=== PATIENT | female | born 1945 | race Caucasian/White ===

== ENCOUNTER 2021-08-06 07:03 | Inpatient (IN) ==
--- NOTE | 2021-07-24 08:49 | PAT Medication Instructions ---
Medication Instructions Date of Service July 24, 2021 Home Medications acetaminophen 500 mg tablet 1,000 mg PO BID PRN aspirin 81 mg tablet 81 mg PO QAM atorvastatin 10 mg tablet 10 mg PO HS celecoxib 200 mg capsule (Celebrex) 200 mg PO QAM cholecalciferol (vitamin D3) 25 mcg (1,000 unit) tablet (Vitamin D3) 25 mcg PO QAM coenzyme Q10 100 mg capsule (CoQ-10) 100 mg PO QAM levothyroxine 50 mcg tablet 50 mcg PO QAM lisinopril 20 mg tablet 20 mg PO QAM metoprolol succinate 25 mg tablet,extended release 24 hr 25 mg PO QAM multivitamin 1 tab PO QAM PreserVision AREDS-2 1 tab PO BID Benefiber Clear Sugar Free(dextrin) 1.5 g PO QAM ASK your surgeon for instructions celecoxib 200 mg capsule (Celebrex) 200 mg PO QAM ASK your prescriber and surgeon aspirin 81 mg tablet 81 mg PO QAM STOP taking 2 weeks before surgery (or as soon as possible if surgery is within 2 weeks) coenzyme Q10 100 mg capsule (CoQ-10) 100 mg PO QAM PreserVision AREDS-2 1 tab PO BID DO NOT take the morning of surgery cholecalciferol (vitamin D3) 25 mcg (1,000 unit) tablet (Vitamin D3) 25 mcg PO QAM lisinopril 20 mg tablet 20 mg PO QAM multivitamin 1 tab PO QAM Benefiber Clear Sugar Free(dextrin) 1.5 g PO QAM Take morning of surgery With a small sip of water, OTHERWISE NOTHING TO EAT OR DRINK AFTER MIDNIGHT: acetaminophen 500 mg tablet 1,000 mg PO BID PRN (okay to take up to 4 hours prior to surgery if needed) levothyroxine 50 mcg tablet 50 mcg PO QAM metoprolol succinate 25 mg tablet,extended release 24 hr 25 mg PO QAM Take evening before surgery acetaminophen 500 mg tablet 1,000 mg PO BID PRN (if needed) atorvastatin 10 mg tablet 10 mg PO HS Other Notes If you have any questions please call us at [phone] or [phone] or [phone] or [phone]
--- NOTE | 2021-07-26 09:11 | Anesthesiology Consultation ---
Date of Service July 26, 2021 Assessment & Plan (1) Encounter for pre-operative examination: - COVID screening: Per assessment on 07/26: No known COVID-19 positive contacts or current COVID-19 related symptoms. Travel screen negative. Patient vaccinated. Surgeon arranging preop COVID testing. Awaiting results. - Cardiology note (07/12/21): Low to intermediate cardiac risk Chart Review Chart Review: Acceptable Risk for Surgery and Patient seen in Pre Admission Testing Teaching & Discussion Pre-Anesthesia Teaching/Discussion Notes: Instructed NPO after midnight before surgery,except medications with 15 cc of water. Medication instructions provided according to the PAT guidelines. History Surgery Operation Date: 08/06/21 08:55 Proposed Procedures p Right Total Shoulder Arthroplasty Reverse - Adelfo Reyna MD Height/Weight Height: 5 ft 3.5 in Weight: 100.6 kg Allergies Allergy/AdvReac Type Severity Reaction Status Date / Time prochlorperazine Allergy Severe "weird Verified 07/23/21 15:06 [From Compazine] tongue feeling" thimerosal Allergy Intermediate eye Verified 07/23/21 15:06 redness and irritation nickel Allergy Mild skin Verified 07/23/21 15:06 irritation Medications Home Medications Medication Instructions Recorded Confirmed Last Taken acetaminophen 500 mg tablet 1,000 mg PO BID PRN 07/23/21 07/23/21 Unknown aspirin 81 mg tablet 81 mg PO QA 07/23/21 07/23/21 Unknown atorvastatin 10 mg tablet 10 mg PO HS 07/23/21 07/23/21 Unknown celecoxib 200 mg capsule (Celebrex) 200 mg PO [facility] 07/23/21 07/23/21 Unknown cholecalciferol (vitamin D3) 25 25 mcg PO QAM 07/23/21 07/23/21 Unknown mcg (1,000 unit) tablet (Vitamin D3) coenzyme Q10 100 mg capsule 100 mg PO QAM 07/23/21 07/23/21 Unknown (CoQ-10) levothyroxine 50 mcg tablet 50 mcg PO QAM 07/23/21 07/23/21 Unknown lisinopril 20 mg tablet 20 mg PO QAM 07/23/21 07/23/21 Unknown metoprolol succinate 25 mg 25 mg PO QAM 07/23/21 07/23/21 Unknown tablet,extended release 24 hr multivitamin 1 tab PO QAM 07/23/21 07/23/21 Unknown vit C 250 mg-vit E 90 mg-zinc 40 1 tab PO BID 07/23/21 07/23/21 Unknown mg-copper 1 [id number] capsule (PreserVision AREDS-2) wheat dextrin 3 gram/3.5 gram oral 1.5 g PO QAM 07/23/21 07/23/21 Unknown powder packet (Benefiber Clear Sugar Free(dextrin)) Past Medical History Medical History CAD (coronary artery disease) Non-obstructive 3 vessel CAD (2004 cardiac cath, no stents) Follows with Dr. lGez Glaucoma mild Hyperlipidemia Hypertension Hypothyroidism Osteoarthritis Overactive bladder Skin irritation Occasional skin irritation under breast resolved with PRN antifungals. No current issues. Sleep apnea "moderate" per home study > no machine at this time (did not have formal sleep study yet) Spinal stenosis Exercise / Class Metabolic Activity III < 4 Walking/Shop/Light housework (one FS (no CP, + SOB)) Past Family History Family History Other No family history of adverse response to anesthesia Past Surgical History Surgical History History of bilateral tubal ligation History of cardiac cath ~2004 ([place]) > no stents History of carpal tunnel release R/L History of colonoscopy History of tonsillectomy History of vitrectomy left S/P bladder repair cystocele repair S/P epidural steroid injection Past Anesthesia History No Hx of Anesthesia Complications (except single episode PONV) and No Family Hx of Anesthesia Complications History of PONV No Hx of Motion Sickness and History of PONV (single episode) Social History Smoking Status: Never smoker Do You Dip or Chew Tobacco: No Hx Alcohol Use: No Hx Substance Use: No substance use type: does not use Review of Systems Patient denies chest pain, shortness of breath, fever, chills, cough, wheezing, palpitations. Physical Exam Vital Signs VITALS BP 139/80 P 76 TEMP 98.8 SP02 95%RA RESP 16 PHYSICAL Mildly decreased cervical extension range of motion. Full TMJ range of motion. TMD 3 finger breaths (difficult to palpate) Mallampati Score 2 Dentition: intact, + caps Lungs: clear throughout to auscultation Cardiac: regular rate and rhythm, no murmurs noted Spine: normal Carotid arteries: negative bruit Extremities: no edema Short, thick neck Lab Results Anesthesia Preop Results Results Anesthesia Widget: WBC 6.77 K/uL (4.8-10.8) 07/26/21 Hgb 13.2 g/dL (12.0-16.0) 07/26/21 Hct 39.7 % (37-47) 07/26/21 Plt 338 K/uL (130-400) 07/26/21 Na 138 mmol/L (136-145) 07/26/21 K 4.1 mmol/L (3.5-5.1) 07/26/21 Cl 105 mmol/L (98-107) 07/26/21 CO2 26 mmol/L (21-32) 07/26/21 BUN 20 mg/dl (6-23) 07/26/21 Creat 0.70 mg/dl (0.6-1.2) 07/26/21 Glucose Level 115 mg/dl (70-99(Fasting)) H 07/26/21 PT 10.7 Seconds (9.0-12.0) 07/26/21 PTT 25.0 Seconds (21.0-31.0) 07/26/21 INR 1.0 (0.9-1.1) 07/26/21 HA1c 5.6 % (4.5-5.6) 07/26/21 Urine Color Yellow 07/26/21 Urine Appearance Clear (Clear) 07/26/21 Urine pH 5.0 (4.5-7.5) 07/26/21 Urine Specific [place] 1.020 (1.000-1.030) 07/26/21 Urine Protein Negative (Negative) 07/26/21 Urine Glucose (UA) Negative (Negative) 07/26/21 Urine Ketones Negative (Negative) 07/26/21 Urine Blood Negative (Negative) 07/26/21 Urine Nitrite Negative (Negative) 07/26/21 Urine Bilirubin Negative (Negative) 07/26/21 Urine Urobilinogen Negative (Negative) 07/26/21 Urine Leukocyte Esterase 1+ (Negative) H 07/26/21 Urine WBC (Auto) 10-30 /hpf (0-5) H 07/26/21 Urine RBC (Auto) 0-4 /hpf (0-4) 07/26/21 Urine Hyaline Casts (Auto) 1-5 /lpf (0-5) 07/26/21 Urine Epithelial Cells (Auto) >30 /lpf (0-5) H 07/26/21 Urine Bacteria (Auto) Negative (Negative) 07/26/21 Blood Type A Positive 07/26/21 Antibody Screen NEGATIVE 07/26/21 Testing Electrocardiogram Date: 04/06/21 SR at 71bpm. Low QRS voltage in precordial leads. Normal variant of ECG. Chest X-Ray Date: 07/26/21 Findings: + NAD Echocardiogram Date: 12/29/19 EF 60%. Mild LVH. No regional wall motion abnormality. Mild AI. Mild MR. Trace to mild TR. Mild PI. Normal PAP. Stress Test Date: 12/29/19 Type: nuclear (Lexiscan) Based on EKG criteria, this test is negative. Based on nuclear imaging findings, there is no evidence of myocardial ischemia or infarction. EF 71%.
--- NOTE | 2021-08-03 17:24 | History & Physical Report ---
Date of Service August 03, 2021 Assessment & Plan (1) Primary osteoarthritis, right shoulder: Plan: Treatment options discussed with patient. Surgical intervention recommended as she has failed conservative measures. Risks, benefits and alternatives to surgery including but not limited to infection, DVT, pain, stiffness, need for revision surgery, damage to blood vessels, damage to nerves, PE, , were discussed with the patient and they wish to proceed. Plan for right reverse total shoulder arthroplasty scheduled for Nataly Marie on August [address] Reyna. All questions were answered. Patient will follow up postoperatively. History of Present Illness Chief Complaint: Right shoulder pain Primary Care Provider: Aramis Juarez 76-year-old female with past medical history significant for hypertension, JUAN A, high cholesterol, hypothyroidism, coronary artery disease, who presents with ongoing right shoulder pain. Pain is interfering with patient's daily activities. She has failed conservative measures including anti-inflammatories and injections. She would like to proceed with surgical intervention. Patient denies headaches, sweats, fevers, chills, double vision, blurred vision, cough, sore throat, dysphagia, chest pain, sob, wheezing, n/v/d/c, numbness, tingling, fatigue, urinary symptoms, mood disorders. ROS positive for right shoulder pain and stiffness. Allergies Allergy/AdvReac Type Severity Reaction Status Date / Time prochlorperazine Allergy Severe "weird Verified 07/23/21 15:06 [From Compazine] tongue feeling" thimerosal Allergy Intermediate eye Verified 07/23/21 15:06 redness and irritation nickel Allergy Mild skin Verified 07/23/21 15:06 irritation Home Medications Medication Instructions Recorded Confirmed Type acetaminophen 500 mg tablet 1,000 mg PO BID PRN 07/23/21 07/23/21 History aspirin 81 mg tablet 81 mg PO QAM 07/23/21 07/23/21 History atorvastatin 10 mg tablet 10 mg PO HS 07/23/21 07/23/21 History celecoxib 200 mg capsule (Celebrex) 200 mg PO QAM 07/23/21 07/23/21 History cholecalciferol (vitamin D3) 25 25 mcg PO QAM 07/23/21 07/23/21 History mcg (1,000 unit) tablet (Vitamin D3) coenzyme Q10 100 mg capsule 100 mg PO QAM 07/23/21 07/23/21 History (CoQ-10) levothyroxine 50 mcg tablet 50 mcg PO QAM 07/23/21 07/23/21 History lisinopril 20 mg tablet 20 mg PO QAM 07/23/21 07/23/21 History metoprolol succinate 25 mg 25 mg PO QAM 07/23/21 07/23/21 History tablet,extended release 24 hr multivitamin 1 tab PO QAM 07/23/21 07/23/21 History vit C 250 mg-vit E 90 mg-zinc 40 1 tab PO BID 07/23/21 07/23/21 History mg-copper 1 [id number] capsule (PreserVision AREDS-2) wheat dextrin 3 gram/3.5 gram oral 1.5 g PO QAM 07/23/21 07/23/21 History powder packet (Benefiber Clear Sugar Free(dextrin)) Past Med/Surg History Medical History CAD (coronary artery disease) Non-obstructive 3 vessel CAD (2004 cardiac cath, no stents) Follows with Dr. Glez Glaucoma mild Hyperlipidemia Hypertension Hypothyroidism Osteoarthritis Overactive bladder Skin irritation Occasional skin irritation under breast resolved with PRN antifungals. No current issues. Sleep apnea "moderate" per home study > no machine at this time (did not have formal sleep study yet) Spinal stenosis Surgical History History of bilateral tubal ligation History of cardiac cath ~2004 ([place]) > no stents History of carpal tunnel release R/L History of colonoscopy History of tonsillectomy History of vitrectomy left S/P bladder repair cystocele repair S/P epidural steroid injection Family History Other No family history of adverse response to anesthesia Social History Smoking Status: Never smoker Second Hand Exposure: No; Hx Alcohol Use: No Hx Substance Use: No Preferred Language: Kiswahili Communication Ability: Effective Senior Administrative Assistant Required: No Beliefs That Will Affect Care: None Current Living Situation: Spouse Feels Safe at Home: Yes Assistive Devices: Glasses Review of Systems All systems reviewed & are unremarkable except as noted in HPI & below Physical Exam Constitutional: well developed and well nourished; no acute distress Eyes: PERRL, conjunctivae normal, anicteric sclerae ENMT: external ear and nose normal, oropharynx normal Neck: trachea midline, no thyromegaly Respiratory: normal respiratory effort, lungs clear to auscultation Cardiovascular: RRR, no murmur, no edema Musculoskeletal: Right shoulder: Crepitation noted with range of motion. Diffuse tenderness shoulder max tenderness anterolateral acromion and anterior glenoid, positive impingement signs. Active painful range of motion. Abduction to 90 degrees, forward flexion of 120 degrees, external rotation to 50 degrees. Skin: no rashes, warm and dry Neurologic: patellar DTR's 2+ bilat, sensation intact Psychiatric: A+Ox3, euthymic affect Results & Data ([place]) Diagnostic Findings Right shoulder radiographs demonstrate end-stage osteoarthritis glenohumeral joint with [id number] glenohumeral joint with periarticular osteophyte formation subchondral cystic changes. There is severe AC joint arthritis. MRI demonstrates marked subacromial bursitis with calcific tendinitis and rotator cuff with high-grade partial tearing of the rotator cuff.
[~2021-08-06 07:03] MED LIST: ACETAMINOPHEN 500 MG TAB PO SCH; CeleBREX 200 MG CAP PO SCH; FAMOTIDINE 20 MG TAB PO SCH; GABAPENTIN 300 MG CAP PO SCH; LR 15ML/HR IV SCH; METOCLOPRAMIDE HCL 10 MG TABLET PO SCH; TRANEXAMIC ACID 1,000 MG **IV Intra-op IV SCH; TRANEXAMIC ACID 1,000 MG **IV Pre-op IV SCH; ceFAZolin 2000MG 2,000 MG/15 ML SYR IV SCH; dexAMETHasone 4 MG TAB PO SCH
[2021-08-06] MEDS ORDERED: BUPIVACAINE 0.5 % 5 MG/1 ML PF 10ML VIAL ONE (07:04)
[2021-08-06] MEDS ORDERED: MIDAZOLAM HCL 1 MG/ML 2ML VIAL ONE (07:14)
[2021-08-06] MEDS ORDERED: fentaNYL citrate 100 MCG/2 ML VIAL ONE (07:19)
--- NOTE | 2021-08-06 07:48 | History & Physical Bridge Note ---
Date of Service August 06, 2021 History & Physical Bridge Note I have examined the patient, reviewed the History & Physical and in the interval since the performance of the History & Physical I have noted the following changes of clinical significance: no changes noted
[2021-08-06] MEDS ORDERED: ePHEDrine sulfate 50 MG/ML AMP IV PRN (08:33)
[2021-08-06] MEDS ORDERED: HYDROmorphone INJ 2 MG/ML SYR/VIAL IV PRN (08:33)
[2021-08-06] MEDS ORDERED: ONDANSETRON INJ 2 MG/ML 2 ML VIAL IV PRN ×2 (08:33→15:36)
[2021-08-06] MEDS ORDERED: ATROPINE SULFATE 0.1 MG/ML 10ML SYR IV PRN (08:33)
[2021-08-06] MEDS ORDERED: fentaNYL citrate 100 MCG/2 ML VIAL IV PRN (08:33)
[2021-08-06] MEDS ORDERED: PROPOFOL IV EMULSION 10 MG/ML 20 ML VIAL IV ONE (10:15)
[2021-08-06] MEDS ORDERED: ONDANSETRON INJ 2 MG/ML 2 ML VIAL ONE (10:15)
[2021-08-06] MEDS ORDERED: ePHEDrine sulfate 50 MG/ML SYR ONE (10:15)
[2021-08-06] MEDS ORDERED: NEOSTIGMINE METHYLSULFATE 1 MG/ML 10ML VIAL ONE (10:15)
[2021-08-06] MEDS ORDERED: DEXAMETHASONE SOD INJ 4 MG/ML VIAL ONE (10:15)
[2021-08-06] MEDS ORDERED: ROCURONIUM BROMIDE 10 MG/ML 5 ML VIAL IV ONE (10:15)
[2021-08-06] MEDS ORDERED: LIDOCAINE 2% 2 ML VIAL/AMP(20MG/ML) INFIL ONE (10:15)
[2021-08-06] MEDS ORDERED: GLYCOPYRROLATE 0.2 MG/ML VIAL ONE (10:15)
--- NOTE | 2021-08-06 12:34 | Post Operative Brief Note ---
Immediate Post Op Note v1 Date of Surgery August 06, 2021 Pre & Post Diagnosis Operation Date: 08/06/21 08:55 Pre-Op Diagnosis: Primary glenohumeral osteoarthritis of Right Shoulder, Biceps Tendinopathy, rotator cuff tendinopathy, obesity BMI 38.6 Post-Op Diagnosis: Primary glenohumeral osteoarthritis of Right Shoulder, Biceps Tendinopathy, rotator cuff tendinopathy, obesity BMI 38.6 I identified the patient and participated in the time-out.: Yes Procedure Operation Date: 08/06/21 08:55 Actual Procedures p Right reversed total Shoulder Arthroplasty, Biceps Tenodesis(Right) - Adelfo Reyna MD Surgeon Adelfo Reyna MD Clinical Quality Assurance Specialist Vadim WOODALL Estimated Blood Loss 75 Findings Consistent with Post-Op Diagnosis Specimens Humeral head Drains Hemovac Drain Anesthesia Type General Regional Complications none Disposition Disposition: Recovery Room Overlapping Procedure I was present for: the critical portions of procedure. Back up surgeon: was not required during procedure.
--- NOTE | 2021-08-06 13:25 | XRay Report ---
XR shoulder RT min 2V routine CLINICAL HISTORY: Post shoulder surgery TECHNIQUE: 3 views of the right shoulder were obtained. Comparison: None available at the time of this dictation. FINDINGS: Patient is status post shoulder arthroplasty with expected postsurgical changes including soft tissue swelling, subcutaneous emphysema, and surgical staple placement. No periarticular lucency or hardwar e fracture is seen. IMPRESSION: Expected postoperative appearance status post placement of shoulder arthroplasty. ACT 112: Negative or not required by law. Electronically signed by: Elvis Thompson M.D. 08/06/2021 1:24 PM
--- NOTE | 2021-08-06 14:59 | Anesthesiology Progress Note ---
Date of Service August 06, 2021 Anesthesia Post Procedure Vital Signs Vital Signs: Temp Pulse Pulse Resp BP Pulse Ox 08/06/21 14:45 36.2 C L 70 18 138/65 93 08/06/21 14:30 68 18 148/67 H 92 08/06/21 14:15 68 18 145/70 H 92 08/06/21 14:00 71 18 155/66 H 92 08/06/21 13:45 71 18 148/93 H 92 08/06/21 13:35 36.2 C L 70 18 143/68 H 92 08/06/21 13:25 67 20 149/61 H 96 08/06/21 13:15 68 20 139/68 97 08/06/21 13:05 73 20 156/70 H 97 08/06/21 12:57 36.0 C L 76 22 153/67 H 99 08/06/21 07:36 36.7 C 77 20 185/68 H 99 Transfer of Care Handoff Completed per policy Notes Mental Status: alert / awake / arousable and participated in evaluation Patient Amnestic to Procedure: Yes Nausea / Vomiting: adequately controlled Pain: adequately controlled Airway Patency, RR, SpO2: stable & adequate BP & HR: stable & adequate Hydration State: stable & adequate Anesthetic Complications: no major complications apparent and Pt Satisfied with anesthetic care
[2021-08-06] MEDS ORDERED: bisacodyL 10 MG SUPP PR PRN (15:36)
[2021-08-06] MEDS ORDERED: METOCLOPRAMIDE HCL INJ 5 MG/ML 2 ML VIAL IV PRN (15:36)
[2021-08-06] MEDS ORDERED: NALOXONE HCL 0.4 MG/1 ML VIAL/CARP IV PRN (15:36)
[2021-08-06] MEDS ORDERED: oxyCODONE HCL IR 5 MG TAB (IMMEDIATE RELEASE) PO PRN (15:36)
[2021-08-06] MEDS ORDERED: HYDROmorphone INJ 0.5 MG/0.5 ML SYR IV PRN (15:36)
[2021-08-06] MEDS ORDERED: MAGNESIUM HYDROXIDE SUSP 30 ML UDC PO PRN (15:36)
[2021-08-06] MEDS: ACETAMINOPHEN 500 MG TAB PO SCH ×2 (16:13→21:42)
[2021-08-06] MEDS: SODIUM CHLORIDE 0.9% 1000ML 1,000 ML IV SCH (16:13)
--- NOTE | 2021-08-06 16:45 | Hospitalist Consultation ---
Date of Consultation August 06, 2021 Assessment & Plan (1) Primary osteoarthritis, right shoulder: S/p TKA POD #0 - ABX per primary service - IVF per primary service - Chemoprophylaxis per Primary team - continue with SCDs and ASA - Pain control per primary service- tiered pain control with rescue Narcan available - Diet per primary service - Bowel regmine ordered - PT/OT per primary service (2) CAD (coronary artery disease): Reportedly 3V CAD with cardiology review- unspecified - without symptoms - Continue BB - Continue 10mg Atorvastatin - Continue ASA 81 mg daily (3) Hyperlipidemia: As above continue with statin (4) Hypertension: As above - follow goal < 180 overnight (5) Hypothyroidism: Continue with synthroid (6) Sleep apnea: She reports that she was noted with moderate disease and awaiting formal sleep study with titration of therapy - CPAP- AUTOPAP ordered titrate to patient tolerance and adequate VT, RR, SPo2 Supervising Physician Co-Signing Physician Notes I personally saw and examined the patient. I verified all mart points and agree with PAGE Hughes with the following exceptions and/or additions: 76 year old female pod #0 Right reverse total shoulder replacement with biceps tenodesis. Chronic medical conditions reviewed with the patient and stable. o/e A&Ox3, HS1+2, no murmurs, Chest CTAB, Abdo SNT Thank you for the consult will review tomorrow with post op labs. History of Present Illness Reason for Consultation: Medical Management post operatively Requesting Physician: Dr. Reyna Attending Physician: Adelfo Reyna MD History of Present Illness 76 YOF medical history of: Hypothyroidism, HLD, HTN, JUAN A-moderate(awaiting sleep study on device), Aortic Insufficiency, CAD, Obesity, carpral tunnel. Patient is POD#0 fromo right shoulder TKA done under general anesthesia with intubation. EBL reported 75ml. Patient was evaluated in her room on the [place]. Patient is briskly awake on room air. She is without nausea/vomiting and her pain is controlled. She has some tingling to her thumb and index finger on the right hand at the tips. Voices no other concerns. She remains with Hemovac drain in place with minimal serous sang output. She denies any chest pain or difficulty breathing. Overall patient appears comfortable and recovering as planned. Recommendations: - CPAP - AutoPap at night while receiving sedating medications- patient reports she likely won't wear it or sleep much - Follow BMP with renal function in am in regards to ACEi - Rescue Narcan is available - ASA- slated to start in morning- agree as long as primary service comfortable with hemostasis and drain Allergies Allergy/AdvReac Type Severity Reaction Status Date / Time prochlorperazine Allergy Severe "weird Verified 08/06/21 07:23 [From Compazine] tongue feeling" thimerosal Allergy Intermediate eye Verified 08/06/21 07:23 redness and irritation nickel Allergy Mild skin Verified 08/06/21 07:23 irritation Home Medications Medication Instructions Recorded Confirmed Type acetaminophen 500 mg tablet 1,000 mg PO BID PRN 07/23/21 08/06/21 History aspirin 81 mg tablet 81 mg PO QAM 07/23/21 08/06/21 History atorvastatin 10 mg tablet 10 mg PO HS 07/23/21 08/06/21 History celecoxib 200 mg capsule (Celebrex) 200 mg PO QA 07/23/21 08/06/21 History cholecalciferol (vitamin D3) 25 25 mcg PO QAM 07/23/21 08/06/21 History mcg (1,000 unit) tablet (Vitamin D3) coenzyme Q10 100 mg capsule 100 mg PO QA 07/23/21 08/06/21 History (CoQ-10) levothyroxine 50 mcg tablet 50 mcg PO QAM 07/23/21 08/06/21 History lisinopril 20 mg tablet 20 mg PO QAM 07/23/21 08/06/21 History metoprolol succinate 25 mg 25 mg PO QA 07/23/21 08/06/21 History tablet,extended release 24 hr multivitamin 1 tab PO QAM 07/23/21 08/06/21 History vit C 250 mg-vit E 90 mg-zinc 40 1 tab PO BID 07/23/21 08/06/21 History mg-copper 1 gv-gdobfr-dmpuoc capsule (PreserVision AREDS-2) wheat dextrin 3 gram/3.5 gram oral 1.5 g PO QAM 07/23/21 08/06/21 History powder packet (Benefiber Clear Sugar Free(dextrin)) Patient History Medical History (Updated 08/06/21 @ 17:17 by PAGE العراقي) CAD (coronary artery disease) Non-obstructive 3 vessel CAD (2004 cardiac cath, no stents) Follows with Dr. Glez Glaucoma mild Hyperlipidemia Hypertension Hypothyroidism Osteoarthritis Overactive bladder Skin irritation Occasional skin irritation under breast resolved with PRN antifungals. No current issues. Sleep apnea "moderate" per home study > no machine at this time (did not have formal sleep study yet) Spinal stenosis Surgical History History of bilateral tubal ligation History of cardiac cath ~2004 ([place]) > no stents History of carpal tunnel release R/L History of colonoscopy History of tonsillectomy History of vitrectomy left S/P bladder repair cystocele repair S/P epidural steroid injection Family History Other No family history of adverse response to anesthesia Social History Smoking Status: Never smoker Second Hand Exposure: No; Do You Dip or Chew Tobacco: No; Tobacco Cessation Education Requested by Patient: No Hx Alcohol Use: No Hx Substance Use: No Preferred Language: Arabic Communication Ability: Effective Topstitcher Lockstitch Required: No Beliefs That Will Affect Care: None Current Living Situation: Spouse Other Information That Helps Us Care for You: No Feels Safe at Home: Yes Safety Concerns: Feels Safe At This Time Assistive Devices: Glasses Review of Systems Review of Systems: REVIEW OF SYSTEMS: Constitutional: No fever, sweats or chills Eyes: No diplopia, no worsening or blurred vision ENT: normal hearing, no trouble swallowing Respiratory: No cough, sputum, dyspnea at rest or on exertion Cardiovascular: No chest pain, tightness or palpitations Abdomen: No pain, nausea, vomiting, diarrhea or constipation Musculoskeletal: No joint pain, calf pain, swelling Neurologic: No weakness, or balance problems Psychiatric: No anxiety or depression Skin: No rash or itch Physical Exam Physical Exam: PHYSICAL EXAM: General: awake, alert, no apparent distress Head: Normocephalic, atraumatic ENT: PERRLA, EOMI, no pharyngeal exudate, mucous membranes moist Neuro: AAO x 3, speech clear and appropriate, strength intact bilaterally 5/5, sensation intact and equal all extremities and dermatomes Chest: equal rise and fall of the chest, no accessory muscle use, no heaves or thrills, decreased in bases, on room air, Cardiac: Regular rate and rhythm, telemetry reviewed, skin warm dry, cap refill <3 seconds, peripheral pulses +2 no JVD, grade II systolic murmur,- tingling to tip of right thumb and right index finger tip- strong radial pulse GI: NABS x 4 quadrants, soft, nontender to palpation, no rebound, guarding or tenderness : Spontaneously voiding, no pain, no CVA tenderness, Extremities: Normal inspection, no peripheral edema or erythema, calfs nontender to palpation Psych: Normal mood and affect Skin: right shoulder dressing intact with Hemovac drain in place draining small amount of serous sang drainage Results & Data Results & Data ([facility]) Vital Signs (Past 12 Hours) Vital Signs Temp Pulse Pulse Resp BP Pulse Ox 08/06/21 16:15 36.9 C 71 16 148/76 H 93 08/06/21 15:47 36.6 C 72 20 124/63 94 08/06/21 15:00 70 18 143/65 H 93 08/06/21 14:45 36.2 C L 70 18 138/65 93 08/06/21 14:30 68 18 148/67 H 92 08/06/21 14:15 68 18 145/70 H 92 08/06/21 14:00 71 18 155/66 H 92 08/06/21 13:45 71 18 148/93 H 92 08/06/21 13:35 36.2 C L 70 18 143/68 H 92 08/06/21 13:25 67 20 149/61 H 96 08/06/21 13:15 68 20 139/68 97 08/06/21 13:05 73 20 156/70 H 97 08/06/21 12:57 36.0 C L 76 22 153/67 H 99 08/06/21 07:36 36.7 C 77 20 185/68 H 99 Laboratory Results none for review - BMP and CBC in am Medications Administered Home Medications acetaminophen 500 mg tablet 1,000 mg PO BID PRN 07/23/21 [History Confirmed 08/06/21] aspirin 81 mg tablet 81 mg PO QAM 07/23/21 [History Confirmed 08/06/21] atorvastatin 10 mg tablet 10 mg PO HS 07/23/21 [History Confirmed 08/06/21] celecoxib 200 mg capsule (Celebrex) 200 mg PO QAM 07/23/21 [History Confirmed 08/06/21] cholecalciferol (vitamin D3) 25 mcg (1,000 unit) tablet (Vitamin D3) 25 mcg PO QAM 07/23/21 [History Confirmed 08/06/21] coenzyme Q10 100 mg capsule (CoQ-10) 100 mg PO QA 07/23/21 [History Confirmed 08/06/21] levothyroxine 50 mcg tablet 50 mcg PO QA 07/23/21 [History Confirmed 08/06/21] lisinopril 20 mg tablet 20 mg PO QA 07/23/21 [History Confirmed 08/06/21] metoprolol succinate 25 mg tablet,extended release 24 hr 25 mg PO QA 07/23/21 [History Confirmed 08/06/21] multivitamin 1 tab PO QAM 07/23/21 [History Confirmed 08/06/21] vit C 250 mg-vit E 90 mg-zinc 40 mg-copper 1 du-wlrvue-hudvwe capsule (PreserVision AREDS-2) 1 tab PO BID 07/23/21 [History Confirmed 08/06/21] wheat dextrin 3 gram/3.5 gram oral powder packet (Benefiber Clear Sugar Free(dextrin)) 1.5 g PO [facility] 07/23/21 [History Confirmed 08/06/21] Active Medications Acetaminophen (Acetaminophen 500 Mg Tab) 1,000 mg PO Q8 [facility] Stop: 09/05/21 15:59 Last Admin: 08/06/21 16:13 Dose: 1,000 mg Documented by: Aspirin (Aspirin 81 Mg Ectab) 81 mg PO [facility] Stop: 09/06/21 08:59 Atorvastatin Calcium (Atorvastatin 10 Mg Tab) 10 mg PO [facility] Stop: 09/05/21 20:59 Bisacodyl (Bisacodyl 10 Mg Supp) 10 mg MT DAILY PRN PRN Reason: Constipation Stop: 09/05/21 15:35 Docusate Sodium (Docusate Sodium 100 Mg Cap) 100 mg PO BID [facility] Stop: 09/05/21 20:59 Hydromorphone HCl (Hydromorphone Inj 0.5 Mg/0.5 Ml Syr) 0.5 mg IV Q4H PRN PRN Reason: Pain or Pre PT Stop: 08/20/21 15:35 Sodium Chloride (Nss 1000ml) 1,000 mls @ 100 mls/hr IV .Q10H [facility] Stop: 08/07/21 06:00 Last Admin: 08/06/21 16:13 Dose: 100 mls/hr Documented by: Cefazolin Sodium (Ancef 2000mg) 2,000 mg in 15 mls @ 3.75 mls/min IV Q8H [facility]; Protocol Stop: 08/07/21 03:03 Levothyroxine Sodium (Levothyroxine Sodium 50 Mcg Tablet) 50 mcg PO [facility] Stop: 09/06/21 08:59 Lisinopril (Lisinopril 20 Mg Tab) 20 mg PO [facility] Stop: 09/06/21 08:59 Magnesium Hydroxide (Magnesium Hydroxide Susp 30 Ml Udc) 30 ml PO Q6H PRN PRN Reason: Constipation Stop: 09/05/21 15:35 Metoclopramide HCl (Metoclopramide Hcl Inj 5 Mg/Ml 2 Ml Vial) 10 mg IV Q6H PRN PRN Reason: Nausea And Vomiting Stop: 09/05/21 15:35 Metoprolol Succinate (Metoprolol Succ 25mg Ext Rel Tab) 25 mg PO [facility] Stop: 09/06/21 08:59 Multivitamins (Multivitamin Tab) 1 tab PO [facility] Stop: 09/06/21 08:59 Multivitamins (Multivitamin Tab) 1 tab PO [facility] Stop: 09/06/21 08:59 Naloxone HCl (Naloxone Hcl 0.4 Mg/1 Ml Vial/Carp) 0.1 mg IV Q5M PRN PRN Reason: Oversedation/Resp Depression Stop: 09/05/21 15:35 Ondansetron HCl (Ondansetron Inj 2 Mg/Ml 2 Ml Vial) 4 mg IV Q6H PRN PRN Reason: Nausea And Vomiting Stop: 09/05/21 15:35 Oxycodone HCl (Oxycodone Hcl Ir 5 Mg Tab (Immediate Release)) 5 - 10 mg PO Q4H PRN PRN Reason: Pain or Pre PT Stop: 08/20/21 15:35 Sennosides (Senna 8.6 Mg Tab) 17.2 mg PO [facility] Stop: 09/05/21 20:59 Vitamin D (Cholecalciferol 1,000 Units 25 Mcg Tab) 1,000 units PO QAM [facility] Stop: 09/06/21 08:59 ECG Additional Comments: none for review PG Care Time/CCT Total # of Minutes Spent Total Time Spent with Patient: Total time spent is greater than 50% in coordination of care (as documented) at patient's floor/unit and/or counseling patient: Coding Level of Care Code 44234 Office/OBS Consult Lvl 3 Diagnoses Primary osteoarthritis, right shoulder M19.011 CAD (coronary artery disease) I25.10 Hyperlipidemia E78.5 Hypertension I10 Hypothyroidism E03.9 Sleep apnea G47.30
--- NOTE | 2021-08-06 16:50 | Operative Report ---
Post Operative Report Pre & Post Diagnosis Operation Date: 08/06/21 08:55 Pre-Op Diagnosis: Right shoulder glenohumeral osteoarthritis, rotator cuff tendinopathy, biceps tendinitis, obesity BMI 38.6 Post-Op Diagnosis: Right shoulder glenohumeral osteoarthritis, rotator cuff tendinopathy, biceps tendinitis and tendinopathy, obesity BMI 38.6 I identified the patient and participated in the time-out.: Yes Procedure Operation Date: 08/06/21 08:55 Actual Procedures p Right reverse total shoulder replacement with biceps tenodesis. Adelfo Reyna MD Surgeon Adelfo Reyna MD Quality Control Engineer Vadim WOODALL Estimated Blood Loss 75 Findings Consistent with Post-Op Diagnosis Specimens Humeral head Drains 2 Hemovac Anesthesia Type General Regional Complications none Disposition Disposition: Recovery Room Indications 76-year-old female with severe glenohumeral osteoarthritis right shoulder failed conservative management. Radiographically [id number] with type a central wear. MRI however demonstrates marked tendinopathy of the rotator cuff with partial tearing of the rotator cuff and biceps tenosynovitis and chronic marked subacromial bursitis. Description of Procedure The patient was taken to the operating room and anesthetized under regional block and general anesthetic. The patient was positioned on the operating table in a 30 beach chair position with a towel roll under the medial border of the right scapula. The arm was draped free to be able to manipulate the shoulder as needed. The right upper extremity was prepped and draped in usual sterile fashion. Exam demonstrated an obese arm and shoulder area. 120 passive forward flexion 35 degrees external rotation 40 degrees internal rotation and 70 degrees abduction. An anterior deltopectoral approach was performed. A longitudinal incision was made in the deltopectoral interval. The skin was incised sharply. Deep layer of fat was divided down to the fascia. Subcutaneous flaps were elevated off the fascia. The cephalic vein was dissected out and retracted lateral with the deltoid. The clavipectoral fascia was divided at the lateral margin of the conjoined tendon and extended up to the CA ligament. The following findings were noted: There was chronic bursitis over the subscapularis and subacromial space. There was rotator cuff tendinopathy with intact rotator cuff. There was chronic biceps tenosynovitis. The extra-articular external biceps tendon was intact. The upper centimeter of the pectoralis was released for inferior exposure. A self-retaining retractor was placed. Thebiceps tendon was tenodesed to the pectoralis tendon with #2 FiberWire. The proximal biceps was resected. The subscapular muscle fibers were split longitudinally at the level of the circumflex vessels. The circumflex vessels were identified and tied off with silk ties and divided laterally. A Kitner elevator was used to free up the inferior fibers of the subscapularis off of the capsule. The axillary nerve was identified with a tug test and protected with a blunt Brionna retractor between the nerve and the capsule. The subscapularis tendon was then taken down off of the lesser tuberosity subperiosteally, a Vicryl traction suture was placed and a subperiosteal dissection was performed along the neck of the humerus as the arm was gradually externally rotated exposing the humeral head. The humeral head findings demonstrated eburnated bone exposed bone on the humeral head with irregular inferior osteophytes that extended posteriorly and anteriorly. Retractors were readjusted and the osteophytes were all resected using an artist chisel and a rongeur A Maciel elevator was used to assist in releasing the capsule of the neck of the humerus. The capsule was divided with Ahumada scissors down to the glenoid released off the anterior glenoid and the rotator interval was released to meet the capsular release and a 360 release of the subsca pularis was accomplished. A Fukuda retractor was placed into the joint retracting the humeral head posterior. Glenoid findings demonstrated exposed bone devoid of articular cartilage. There were subchondral cystic changes. The labrum and biceps tendon was resected. an anterior-inferior and posterior inferior capsular release were performed with electrocautery and a Maciel elevator on bone with the axillary nerve protected inferiorly by the retractor. Attention was then taken to the humeral preparation. The cutting guide was placed into the humeral head. It was positioned at 20 of retroversion. Oscillating saw was used to resect the humeral head giving the cut above the level of the posterior rotator cuff insertion site. The humerus was then prepared for the stem. I used the ascend flex stem from [employer]. The sizing broaches were used followed by trial broaches up to a size 3B long which had the appropriate fit and fill. The appropriate sized cut protector was placed. The humerus was then retracted posterior to the glenoid. The glenoid was sized for a 25 baseplate The guide for the baseplate was positioned in a 10 inferior tilt and the central drill hole was made. The reamer for the 25 baseplate was used. This revealed several anterior-inferior inferior and posterior inferior cysts that were in the subchondral region. These were individually curetted out with angled and straight curette and rongeur was used to remove the cystic material. The central drill was widened for the peg. After copious irrigation the cyst areas were bone grafted with cancellous bone from the humeral head cut impacted with a bone tamp and then the 25 mm hydroxyapatite-coated aequalis titanium baseplate was impacted into position. The base plate was transfixed with superior and inferior locking screws and anterior and posterior compression screws with stable fixation. The fan reamer was used for the 36 millimeter glenoid sphere. After irrigation the 36 x 25 standard titanium glenoid sphere glenoid sphere was impacted onto the baseplate and the security screw was tightened. This was used due to nickel allergy. Attention was taken back to the humerus. The cut protector was removed and the +0 high offset humeral tray trial was assembled to the trial stem rotated appropriately to get bony coverage and then screwed in position. A trial reduction was performed. A +6, 36 reversed trial insert demonstrated good stability and no shuck. The trials were removed. 3 drill holes are made into the harder bone in the bicipital groove area and 3 #5 FiberWire sutures were placed transosseously. The canal was irrigated with antibiotic solution with bacitracin. The final component was assembled. The final component was 3B long stem assembled to plus or high offset tray with a +6, 36 reversed insert. This was then impacted into the humerus with a tight press-fit. It was reduced to the glenoid sphere. Stability was verified. Subscapularis was repaired with the #5 FiberWire sutures using Cristian-Chirag suture technique. Lateral row soft tissue repair was performed with #2 FiberWire manfuv-yr-ioikh sutures. The pectoralis was repaired with #2 FiberWire gcpaul-ph-dwxfo sutures reinforcing the biceps tendon tenodesis. The arm was taken through a range of motion which demonstrated 150 degrees of forward flexion 90 degrees abduction 70 degrees external and internal rotation The implant was stable through the range of motion tested. The wound was copiously irrigated. 2 Hemovac drains were placed. The deltopectoral interval was closed with ragqby-kc-ligce #1 Vicryl sutures. The subcutaneous tissues were closed with 2-0 Vicryl sutures. The skin was closed with interrupted 3-0 nylon vertical mattress sutures. Sterile dressings were applied and a shoulder immobilizer. Vadim WOODALL my physician placement assistant acted as assistant professor of geography throughout the procedure .He performed functions including patient positioning, arm positioning, prepping and draping, soft tissue retraction, instrument management, suture management and performed the subcutaneous and skin closure and will participate in the postoperative care of the patient. I attest to the content of the Intraoperative Record and any orders documented therein. Any exceptions are noted below.
[2021-08-06] MEDS: DOCUSATE SODIUM 100 MG CAP PO SCH (20:07)
[2021-08-06] MEDS: ceFAZolin 2000MG 2,000 MG/15 ML SYR IV SCH (20:07)
[2021-08-06] MEDS ORDERED: ATORVASTATIN 10 MG TAB PO SCH (21:00)
[2021-08-06] MEDS ORDERED: NON-FORMULARY MEDICATION (Vit C,E-Zn-Coppr-Lutein-Zeaxan [Preservision Areds-2] 250-90-40- PO SCH (21:00)
[2021-08-06] MEDS ORDERED: SENNA 8.6 MG TAB PO SCH (21:00)
[2021-08-07] MEDS ORDERED: COUGH DROP (SUGAR FREE) LOZ 24 LOZ/1 BOX BUCCAL ONE (00:51)
[2021-08-07] MEDS: ceFAZolin 2000MG 2,000 MG/15 ML SYR IV SCH (02:41)
[2021-08-07] MEDS: SODIUM CHLORIDE 0.9% 1000ML 1,000 ML IV SCH (02:43)
[2021-08-07] MEDS: ACETAMINOPHEN 500 MG TAB PO SCH ×2 (04:59→13:12)
[2021-08-07 06:30] LABS: Hematocrit (blood only) 36.9 % (37-47); Hemoglobin 12.3 g/dL (12.0-16.0); Immature Granulocytes # (auto) 0.04 K/uL (0.00-0.02); Immature Granulocytes % (auto) 0.3 %; Lymphocytes # (auto) 0.65 K/uL (1.2-3.4); Lymphocytes % (auto) 5.7 %; Mean Corpuscular Hemoglobin 31.5 pg (25-34); Mean Corpuscular Hgb Conc 33.3 g/dL (32-36); Mean Corpuscular Volume 94.4 fL (80-100); Mean Platelet Volume 9.4 fL (7.4-10.4); Monocytes # (auto) 1.36 K/uL (0.11-0.59); Monocytes % (auto) 11.9 %; Neutrophils # (auto) 9.41 K/uL (1.4-6.5); Neutrophils % (auto) 82.1 %; Platelet Count 347 K/uL (130-400); RDW Coefficient of Variation 14.3 % (11.5-14.5); RDW Standard Deviation 48.9 fL (36.4-46.3); Red Blood Count 3.91 M/uL (4.2-5.4); White Blood Count 11.46 K/uL (4.8-10.8)
[2021-08-07] MEDS ORDERED: LEVOTHYROXINE SODIUM 50 MCG TABLET PO SCH ×2 (06:30→09:00)
[2021-08-07 06:57] LABS: BUN Creatinine Ratio 24.7 (10-20); Creatinine Clr Calc Pharmacy 75.9 ml/min; Est GFR (African American) 93.4 ml/min; Est GFR (Non-African American) 80.6 ml/min; Potassium 4.2 mmol/L (3.5-5.1)
--- NOTE | 2021-08-07 07:58 | Orthopedic Progress Note ---
Date of Service August 07, 2021 Assessment & Plan (1) Primary osteoarthritis, right shoulder: Plan: Postop day 1 PT/OT protocols. Nonweightbearing right upper extremity DVT prophylaxis-aspirin p.o. daily, SCDs Pain management as written Discharge planning-patient is planning for discharge to home. No official physical therapy with her reverse total shoulder until the seen back in the office. Admission and Anticipated Discharge Date Admission Date: August 06, 2021 Subjective Postop day 1 Patient is sitting up in her chair at the bedside. No complaints this morning. Pain is controlled. She states she still has some residual numbness in her thumb and index finger. She states that she has had this in the past and was mainly positional with her arm. We discussed use of the sling and loosening of the sling to help combat this during her time of recovery. No other complaints at this time. Physical Exam Physical Exam: Dressings are clean, dry, and intact. She has good range of motion of her wrist hand and fingers. Decree sensation in the index finger and thumb. Capillary refill is less than [address] in [address]. Results & Data ([facility]) Vital Signs (Past 12 Hours) Vital Signs Temp Pulse Resp BP Pulse Ox 08/07/21 07:40 36.5 C 71 14 149/81 H 95 08/07/21 03:45 36.7 C 72 15 139/68 93 Laboratory Results Laboratory Results WBC 11.46 K/uL (4.8-10.8) H 08/07/21 05:48 RBC 3.91 M/uL (4.2-5.4) L 08/07/21 05:48 Hgb 12.3 g/dL (12.0-16.0) 08/07/21 05:48 Hct 36.9 % (37-47) L 08/07/21 05:48 MCV 94.4 fL (80-100) 08/07/21 05:48 MCH 31.5 pg (25-34) 08/07/21 05:48 MCHC 33.3 g/dL (32-36) 08/07/21 05:48 RDW Std Deviation 48.9 fL (36.4-46.3) H 08/07/21 05:48 RDW Coeff of Matt 14.3 % (11.5-14.5) 08/07/21 05:48 Plt Count 347 K/uL (130-400) 08/07/21 05:48 MPV 9.4 fL (7.4-10.4) 08/07/21 05:48 Immature Gran % (Auto) 0.3 % 08/07/21 05:48 Neut % (Auto) 82.1 % 08/07/21 05:48 Lymph % (Auto) 5.7 % 08/07/21 05:48 Spencer % (Auto) 11.9 % 08/07/21 05:48 Eos % (Auto) 0.0 % 08/07/21 05:48 Baso % (Auto) 0.0 % 08/07/21 05:48 Neut # (Auto) 9.41 K/uL (1.4-6.5) H 08/07/21 05:48 Lymph # (Auto) 0.65 K/uL (1.2-3.4) L 08/07/21 05:48 Spencer # (Auto) 1.36 K/uL (0.11-0.59) H 08/07/21 05:48 Eos # (Auto) 0.00 K/uL (0-0.5) 08/07/21 05:48 Baso # (Auto) 0.00 K/uL (0-0.2) 08/07/21 05:48 Immature Gran # (Auto) 0.04 K/uL (0.00-0.02) H 08/07/21 05:48 Sodium 137 mmol/L (136-145) 08/07/21 05:48 Potassium 4.2 mmol/L (3.5-5.1) 08/07/21 05:48 Chloride 104 mmol/L (98-107) 08/07/21 05:48 Carbon Dioxide 26 mmol/L (21-32) 08/07/21 05:48 Anion Gap 7 (3-11) 08/07/21 05:48 BUN 18 mg/dl (6-23) 08/07/21 05:48 Creatinine 0.73 mg/dl (0.6-1.2) 08/07/21 05:48 Est Cr Clr Drug Dosing 75.9 ml/min 08/07/21 05:48 Est GFR ( Amer) 93.4 ml/min 08/07/21 05:48 Est GFR (Non-Af Amer) 80.6 ml/min 08/07/21 05:48 BUN/Creatinine Ratio 24.7 (10-20) H 08/07/21 05:48 Glucose 118 mg/dl (70-99(Fasting)) H 08/07/21 05:48 Calcium 9.0 mg/dl (8.5-10.1) 08/07/21 05:48 SARS-CoV-2, RNA, NAAT NEGATIVE (NEGATIVE) 08/06/21 07:21 Impressions Shoulder X-Ray 08/06/21 13:00 XR shoulder RT min 2V routine CLINICAL HISTORY: Post shoulder surgery TECHNIQUE: 3 views of the right shoulder were obtained. Comparison: None available at the time of this dictation. FINDINGS: Patient is status post shoulder arthroplasty with expected postsurgical changes including soft tissue swelling, subcutaneous emphysema, and surgical staple placement. No periarticular lucency or hardware fracture is seen. IMPRESSION: Expected postoperative appearance status post placement of shoulder arthroplasty. ACT 112: Negative or not required by law. Electronically signed by: Elvis Thompson M.D. 08/06/2021 1:24 PM
--- NOTE | 2021-08-07 08:03 | Hospitalist Progress Note ---
Date of Service August 07, 2021 Assessment & Plan (1) Primary osteoarthritis, right shoulder: Plan: POD#1 S/p RIGHT TSA with Dr Reyna. EBL 75cc. Pre-op h/h 13.2/39.7 H/h dropped to 12.3/36.9 -- acute blood loss from surgery, expected (hemovac output 130cc) Pain control/bowel regimen/PT/OT per primary service ASA to start today, continued SCDs WBC elevation likely 2nd to steroids during operative period, afebrile Plans for discharge per patient later today (2) CAD (coronary artery disease): Plan: Reportedly 3V CAD with cardiology review- unspecified - without symptoms - Continue BB, atorvastatin 10mg, ASA 81mg daily (3) Hyperlipidemia: Plan: As above continue with statin (4) Hypertension: Plan: BP stable, elevations 2nd to pain but states controlled this afternoon when evaluated Continue home medications (5) Hypothyroidism: Plan: Continue with synthroid No TSH in system for review -- f/u PCP routine management (6) Sleep apnea: Plan: She reports that she was noted with moderate disease and awaiting formal sleep study with titration of therapy - CPAP- AUTOPAP ordered titrate to patient tolerance and adequate VT, RR, SPo2 Plan: Hospitalist service will sign off at this time. Please call with any questions/concerns. Admission and Anticipated Discharge Date Admission Date: August 06, 2021 Supervising Physician Co-Signing Physician Notes TALISHA Supervision Note: I did not personally see or examine the patient today, but I verified all mart points of TALISHA Sidhu's assessment and plan with the following exceptions/additions: None Subjective Patient evaluated this morning. Doing well. Pain controlled with ordered medications.. Eating/drinking and passing gas no issues. Planning for discharge later today and follow up outpatient to determine needs for therapy in the future. She does have some residual numbness/tingling in her thumb and index finger which she states is chronic. Has issue of carpal tunnel and had surgery in past. Similar issues on the other side but no issues with raising arms above the head. Discussed to monitor/alert if any worsening. She is prepared for increased pain levels as the nerve block decreases. No fever/chills, chest pain, shortness of breath, abdominal pain, nausea vomiting or dysuria. Questions/concerns addressed at this time. 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 Hemovac with bloody drainage Psych: AOx3, pleasant and cooperative Neuro: CN intact grossly, no focal deficits Results & Data Results & Data ([facility]) Vital Signs (Past 12 Hours) Vital Signs Temp Pulse Resp BP Pulse Ox 08/07/21 07:40 36.5 C 71 14 149/81 H 95 08/07/21 03:45 36.7 C 72 15 139/68 93 Laboratory Results 08/07/21 08/07/21 Range/Units 05:48 05:48 WBC 11.46 H (4.8-10.8) K/uL RBC 3.91 L (4.2-5.4) M/uL Hgb 12.3 (12.0-16.0) g/dL Hct 36.9 L (37-47) % MCV 94.4 (80-100) fL MCH 31.5 (25-34) pg MCHC 33.3 (32-36) g/dL RDW Std Deviation 48.9 H (36.4-46.3) fL RDW Coeff of Matt 14.3 (11.5-14.5) % Plt Count 347 (130-400) K/uL MPV 9.4 (7.4-10.4) fL Immature Gran % (Auto) 0.3 % Neut % (Auto) 82.1 % Lymph % (Auto) 5.7 % [place] % (Auto) 11.9 % Eos % (Auto) 0.0 % Baso % (Auto) 0.0 % Neut # (Auto) 9.41 H (1.4-6.5) K/uL Lymph # (Auto) 0.65 L (1.2-3.4) K/uL [place] # (Auto) 1.36 H (0.11-0.59) K/uL Eos # (Auto) 0.00 (0-0.5) K/uL Baso # (Auto) 0.00 (0-0.2) K/uL Immature Gran # (Auto) 0.04 H (0.00-0.02) K/uL Sodium 137 (136-145) mmol/L Potassium 4.2 (3.5-5.1) mmol/L Chloride 104 (98-107) mmol/L Carbon Dioxide 26 (21-32) mmol/L Anion Gap 7 (3-11) BUN 18 (6-23) mg/dl Creatinine 0.73 (0.6-1.2) mg/dl Est Cr Clr Drug Dosing 75.9 ml/min Est GFR ( Amer) 93.4 ml/min Est GFR (Non-Af Amer) 80.6 ml/min BUN/Creatinine Ratio 24.7 H (10-20) Glucose 118 H (70-99(Fasting)) mg/dl Calcium 9.0 (8.5-10.1) mg/dl Diagnostic Findings Shoulder X-Ray 08/06/21 13:00 XR shoulder RT min 2V routine CLINICAL HISTORY: Post shoulder surgery TECHNIQUE: 3 views of the right shoulder were obtained. Comparison: None available at the time of this dictation. FINDINGS: Patient is status post shoulder arthroplasty with expected postsurgical changes including soft tissue swelling, subcutaneous emphysema, and surgical staple placement. No periarticular lucency or hardware fracture is seen. IMPRESSION: Expected postoperative appearance status post placement of shoulder arthroplasty. ACT 112: Negative or not required by law. Electronically signed by: Elvis Thompson M.D. 08/06/2021 1:24 PM PG Care Time/CCT Total # of Minutes Spent Total Time Spent with Patient: Total time spent is greater than 50% in coordination of care (as documented) at patient's floor/unit and/or counseling patient: Coding Level of Care Code 74328 Subseq Hosp Care Lvl 2 Diagnoses Primary osteoarthritis, right shoulder M19.011 CAD (coronary artery disease) I25.10 Hyperlipidemia E78.5 Hypertension I10 Hypothyroidism E03.9 Sleep apnea G47.30
[2021-08-07] MEDS ORDERED: lisinopril 20 MG TAB PO SCH (09:00)
[2021-08-07] MEDS ORDERED: CHOLECALCIFEROL 1,000 UNITS 25 MCG TAB PO SCH (09:00)
[2021-08-07] MEDS ORDERED: NON-FORMULARY MEDICATION (Coenzyme Q10 [Coq-10] 100 mg Capsule) PO SCH (09:00)
[2021-08-07] MEDS ORDERED: METOPROLOL SUCC 25MG EXT REL TAB PO SCH (09:00)
[2021-08-07] MEDS ORDERED: MULTIVITAMIN TAB PO SCH ×2 (09:00)
[2021-08-07] MEDS ORDERED: ASPIRIN 81 MG ECTAB PO SCH (09:00)
[2021-08-07] MEDS: DOCUSATE SODIUM 100 MG CAP PO SCH (09:08)
--- NOTE | 2021-08-09 07:49 | Discharge Summary ---
Date of Service August 09, 2021 Admission HPI Per Admitting Provider 76-year-old female with past medical history significant for hypertension, JUAN A, high cholesterol, hypothyroidism, coronary artery disease, who presents with ongoing right shoulder pain. Pain is interfering with patient's daily activities. She has failed conservative measures including anti-inflammatories and injections. She would like to proceed with surgical intervention. Patient denies headaches, sweats, fevers, chills, double vision, blurred vision, cough, sore throat, dysphagia, chest pain, sob, wheezing, n/v/d/c, numbness, tingling, fatigue, urinary symptoms, mood disorders. ROS positive for right shoulder pain and stiffness. Admission Exam Per Admitting Provider Constitutional: well developed and well nourished; no acute distress Eyes: PERRL, conjunctivae normal, anicteric sclerae ENMT: external ear and nose normal, oropharynx normal Neck: trachea midline, no thyromegaly Respiratory: normal respiratory effort, lungs clear to auscultation Cardiovascular: RRR, no murmur, no edema Musculoskeletal: Right shoulder: Crepitation noted with range of motion. Diffuse tenderness shoulder max tenderness anterolateral acromion and anterior glenoid, positive impingement signs. Active painful range of motion. Abduction to 90 degrees, forward flexion of 120 degrees, external rotation to 50 degrees. Skin: no rashes, warm and dry Neurologic: patellar DTR's 2+ bilat, sensation intact Psychiatric: A+Ox3, euthymic affect Principal Diagnosis Right shoulder osteoarthritis Discharge Exam Right shoulder: Dressings are clean, dry, and intact. She has good range of motion of her wrist hand and fingers. Decree sensation in the index finger and thumb. Capillary refill is less than 2 seconds. Sling is in place Constitutional well developed and well nourished; no acute distress Discharge Data Allergies Allergy/AdvReac Type Severity Reaction Status Date / Time prochlorperazine Allergy Severe "weird Verified 08/06/21 07:23 [From Compazine] tongue feeling" thimerosal Allergy Intermediate eye Verified 08/06/21 07:23 redness and irritation nickel Allergy Mild skin Verified 08/06/21 07:23 irritation Consultations 08/06/21 05:00 Consult Hospitalist Routine Procedures Performed Operation Date: 08/06/21 08:55 Actual Procedures p Right Total Shoulder Arthroplasty Reverse, Biceps Tenodesis(Right) - Adelfo Reyna MD Ordered Studies 08/06/21 05:00 US - OR guided needle placemen Routine Hospital Course (1) Primary osteoarthritis, right shoulder: Patient presented for same day admission following right reverse TSA on 08/06/21. She tolerated procedure well. The Patient had an uneventful hospital course. Post-operatively, her activity was progressed and well tolerated. They participated in PT without difficulty. Labs remained stable. Dr. Yusef Montano of medical service was consulted for medical management during admission. Pain controlled on oral medications. Please refer to daily progress notes and PT notes for complete details. After exam on 08/07/21, patient was felt to be stable for discharge home with. Patient will f/u in the office in about 2 weeks for further evaluation including x-rays and incision check, sooner if having any issues or concerns. Postop day 1 PT/OT protocols. Nonweightbearing right upper extremity DVT prophylaxis-aspirin p.o. daily, SCDs Pain management as written Discharge planning-patient is planning for discharge to home. No official physical therapy with her reverse total shoulder until the seen back in the office. Lab Results 08/06/21 08/07/21 08/07/21 Range/Units 07:21 05:48 05:48 WBC 11.46 H (4.8-10.8) K/uL RBC 3.91 L (4.2-5.4) M/uL Hgb 12.3 (12.0-16.0) g/dL Hct 36.9 L (37-47) % MCV 94.4 (80-100) fL MCH 31.5 (25-34) pg MCHC 33.3 (32-36) g/dL RDW Std Deviation 48.9 H (36.4-46.3) fL RDW Coeff of Matt 14.3 (11.5-14.5) % Plt Count 347 (130-400) K/uL MPV 9.4 (7.4-10.4) fL Immature Gran % (Auto) 0.3 % Neut % (Auto) 82.1 % Lymph % (Auto) 5.7 % [place] % (Auto) 11.9 % Eos % (Auto) 0.0 % Baso % (Auto) 0.0 % Neut # (Auto) 9.41 H (1.4-6.5) K/uL Lymph # (Auto) 0.65 L (1.2-3.4) K/uL [place] # (Auto) 1.36 H (0.11-0.59) K/uL Eos # (Auto) 0.00 (0-0.5) K/uL Baso # (Auto) 0.00 (0-0.2) K/uL Immature Gran # (Auto) 0.04 H (0.00-0.02) K/uL Sodium 137 (136-145) mmol/L Potassium 4.2 (3.5-5.1) mmol/L Chloride 104 (98-107) mmol/L Carbon Dioxide 26 (21-32) mmol/L Anion Gap 7 (3-11) BUN 18 (6-23) mg/dl Creatinine 0.73 (0.6-1.2) mg/dl Est Cr Clr Drug Dosing 75.9 ml/min Est GFR ( Amer) 93.4 ml/min Est GFR (Non-Af Amer) 80.6 ml/min BUN/Creatinine Ratio 24.7 H (10-20) Glucose 118 H (70-99(Fasting)) mg/dl Calcium 9.0 (8.5-10.1) mg/dl SARS-CoV-2, RNA, NAAT NEGATIVE (NEGATIVE) Total Time Total Time Spent Total Time Spent (In Minutes): 20 Discharge Plan Discharge Items Patient Disposition: Home - Self-Care Reason For Visit: Right Shoulder Rotator Cuff Tendinopathy Discharge Diagnosis: Right shoulder rotator cuff arthropathy Activity: Per Instructions section Weightbearing: Right non-weightbearing Non-emergency contact: Surgeon Call non-emergency contact if: your pain is not controlled, your temperature is above 101.5, your wound has increased redness and your wound has increased drainage Follow-up/Referrals: Adelfo Reyna MD [Surgeon] - (Follow-up in 14 days from the day of surgery for your first postoperative wound check.) Aramis Juarez M.D. [Primary Care Provider] - Diet: Regular Addtl Attending Provider Instructions: ACTIVITY RECOMMENDATIONS: SELF CARE INSTRUCTIONS AFTER TOTAL SHOULDER ARTHROPLASTY REVERSE A. You may do daily exercises as taught in physical therapy while in hospital. No lifting with the operative arm. B. You are to wear your sling/immobilizer at all times EXCEPT when performing your daily exercises and for hygiene purposes. C. You may perform dry, daily dressing changes. Please keep your incision covered. You may shower 48 hours after surgery. Do not apply soap or any ointment/lotions directly over incision. Do not soak incision in bath tub/swimming pool. D. You may use ice as needed to operative shoulder. SPECIAL CARE INSTRUCTIONS: VERY IMPORTANT TO READ AND REVIEW A. There are a few signs you need to watch for after you are home. Call [facility] at [phone] if you experience any of the followin. Increased severe shoulder pain. Some pain is expected especially when you exercise. 2. Increased swelling in you shoulder or arm; pain or swelling in either upper extremity. 3. Any fluid drainage from the incision. 4. Shortness of breath or chest pain. B. Please call [facility] at [phone] if you have any questions or concerns about your operation or recovery. C. Call your physician if: 1. Temperature is greater than 101 degrees (F). 2. Pain is not relieved by prescribed pain medications. 3. Increase drainage or redness from incision. 4. Unanswered questions or concerns. FOLLOW UP VISIT: Please call [facility] at [phone] to schedule a follow up appointment with Dr. Reyna or his PA in 12-14 days from your surgery date. Stand-Alone Forms: My [facility], Opioid Pain Management, Smoking Cessation Medications and DC Order Prescriptions: New acetaminophen [Tylenol Extra Strength] 500 mg Tablet 1,000 mg PO Q8 14 Days Qty: 84 RF: 0 oxycodone 5 mg Tablet 5 mg PO Q4H MDD 6 PRN (Reason: pain) Qty: 30 RF: 0 polyethylene glycol 3350 [Miralax] 17 gram powder in packet 17 g PO DAILY PRN (Reason: constipation) Qty: 5 RF: 0 Continued celecoxib [Celebrex] 200 mg Capsule 200 mg PO QAM RF: 0 atorvastatin 10 mg Tablet 10 mg PO HS RF: 0 lisinopril 20 mg Tablet 20 mg PO QAM RF: 0 levothyroxine 50 mcg Tablet 50 mcg PO QAM RF: 0 aspirin 81 mg Tablet 81 mg PO QAM RF: 0 metoprolol succinate 25 mg Tablet Extended Release 24 Hr 25 mg PO QAM RF: 0 cholecalciferol (vitamin D3) [Vitamin D3] 25 mcg (1,000 unit) Tablet 25 mcg PO QAM RF: 0 multivitamin Tablet 1 tab PO QAM RF: 0 coenzyme Q10 [CoQ-10] 100 mg Capsule 100 mg PO QAM RF: 0 Benefiber Clear SF (dextrin) 3 gram/3.5 gram Powder In Packet 1.5 g PO QAM RF: 0 PreserVision AREDS-2 250-90-40-1 mg Capsule 1 tab PO BID RF: 0 Discontinued acetaminophen 500 mg Tablet 1,000 mg PO BID PRN (Reason: Pain) RF: 0 Discharge Orders: Discharge Order (Routine); Ordered 08/07/21 Ordered By: Nikos Rodney Admission Data Admit Date/Time: 08/06/21 13:00 Attending Provider: Adelfo Reyna Admit Provider: Adelfo Reyna Primary Care Provider: Aramis Juarez Other Providers: Ansley Cabrera Other Interventions: Discharge Summary Assessment (RN) Last Done: 08/07/21 14:40
== END 2021-08-07 16:28 | disposition home or self-care (01) | DRG 483 ==
LOC: ASU 07:03 → 3E 13:00
DX: E78.00 Pure hypercholesterolemia, unspecified; I10 Essential (primary) hypertension; H40.9 Unspecified glaucoma; M19.011 Primary osteoarthritis, right shoulder; Z88.8 Allergy status to other drugs, medicaments and biological substances; E66.9 Obesity, unspecified; I25.10 Atherosclerotic heart disease of native coronary artery without angina pectoris; G47.33 Obstructive sleep apnea (adult) (pediatric); Z98.83 Filtering (vitreous) bleb after glaucoma surgery status; Z91.048 Other nonmedicinal substance allergy status; Z79.82 Long term (current) use of aspirin; E03.9 Hypothyroidism, unspecified; Z98.51 Tubal ligation status; Z88.7 Allergy status to serum and vaccine; Z90.09 Acquired absence of other part of head and neck; E78.5 Hyperlipidemia, unspecified; Z79.890 Hormone replacement therapy; Z68.38 Body mass index [BMI] 38.0-38.9, adult